=== PATIENT | male | born 1960 | race Caucasian/White ===

== ENCOUNTER 2017-06-02 10:44 | Day surgery (SDC) | payer BC ==
[~2017-06-02 10:44] MED LIST: Lactated Ringers 1,000 ML IV SCH
[2017-06-02] MEDS ORDERED: fentaNYL 100 MCG/2 ML SDV ONE (11:41)
[2017-06-02] MEDS ORDERED: Propofol 200 MG/20 ML SDV ONE (11:41)
[2017-06-02] MEDS ORDERED: Midazolam 1 MG/ML 2 ML SDV ONE (11:41)
[2017-06-02] MEDS ORDERED: Ondansetron 4 MG/2 ML SDV ONE (11:41)
--- NOTE | 2017-06-02 11:50 | PCM.PREANE ---
Preanesthetic Assessment - Anesthesia/Transfusion/Family Hx Anesthesia History: Prior Anesthesia Without Reaction Family History of Anesthesia Reaction: No Transfusion History: No Prior Transfusion(s) Intubation History: Unknown - Review of Systems General: No Symptoms Pulmonary: No Symptoms Cardiovascular: No Symptoms Gastrointestinal: Other (acid reflux) Neurological: No Symptoms Other: Reports: None - Physical Assessment O2 Sat by Pulse Oximetry: 98 Respiratory Rate: 16 Vital Signs: Last Vital Signs Temp 36 C 06/02/17 11:02 Pulse 101 H 06/02/17 11:02 Resp 16 06/02/17 11:02 BP 144/93 H 06/02/17 11:02 Pulse Ox 98 06/02/17 11:02 Height: 1.96 m Weight: 116.573 kg ASA Class: 2 Mental Status: Alert & Oriented x3 Airway Class: Mallampati = 2 Dentition: Reports: Normal Dentition Thyro-Mental Finger Breadths: 3 Mouth Opening Finger Breadths: 2 ROM/Head Extension: Full Lungs: Clear to Auscultation, Normal Respiratory Effort Cardiovascular: Regular Rate, Regular Rhythm - Allergies Allergies/Adverse Reactions: Allergies Allergy/AdvReac Type Severity Reaction Status Date / Time No Known Allergies Allergy Verified 02/10/16 14:14 - Blood Blood Available: No - Anesthesia Plan Pre-Op Medication Ordered: None - Acknowledgements Anesthesia Type Planned: MAC Pt an Appropriate Candidate for the Planned Anesthesia: Yes Alternatives and Risks of Anesthesia Discussed w Pt/Guardian: Yes Pt/Guardian Understands and Agrees with Anesthesia Plan: Yes PreAnesthesia Questionnaire HEENT History: Reports: None Cardiovascular History: Reports: High Cholesterol Respiratory History: Reports: SOB (since february, patient believes it is from abdominal pressure, cardiac tests ok) Gastrointestinal History: Reports: GERD Genitourinary History: Reports: None Musculoskeletal History: Reports: None Neurological History: Reports: Migraines Psychiatric History: Reports: None Endocrine/Metabolic History: Reports: Obesity/BMI 30+ Hematologic History: Reports: None Oncologic (Cancer) History: Reports: None Dermatologic History: Reports: None - Infectious Disease History Infectious Disease History: Reports: None - Past Surgical History Head Surgeries/Procedures: Reports: None Musculoskeletal Surgical History: Reports: Arthroscopic Knee, Other (See Below) Other Musculoskeletal Surgeries/Procedures:: Right knee reconstructive surgery, rt knee arthroscopy - SUBSTANCE USE Smoking Status *Q: Never Smoker Second Hand Smoke Exposure: No Recreational Drug Use History: No - HOME MEDS Home Medications: Home Meds Aspirin [[place] Aspirin] 81 mg CHEW DAILY 03/16/17 [History] Omeprazole 40 mg PO DAILY 03/16/17 [History] SUMAtriptan Succinate [Imitrex] 100 mg PO ASDIRECTED PRN 05/28/17 [History] - CURRENT (IN HOUSE) MEDS Current Meds: Current Medications Lactated Ringer's (Ringers, Lactated) 1,000 mls @ 125 mls/hr IV ASDIRECTED ALONDRA Last Admin: 06/02/17 11:09 Dose: 125 mls/hr Discontinued Medications Fentanyl (Sublimaze) Confirm Administered Dose 100 mcg .ROUTE .STK-MED ONE Stop: 06/02/17 11:42 Lidocaine HCl (Xylocaine-Mpf 1%) Confirm Administered Dose 5 ml .ROUTE .STK-MED ONE Stop: 06/02/17 11:42 Midazolam HCl (Versed 1 Mg/Ml) Confirm Administered Dose 2 mg .ROUTE .STK-MED ONE Stop: 06/02/17 11:42 Ondansetron HCl (Zofran) Confirm Administered Dose 4 mg .ROUTE .STK-MED ONE Stop: 06/02/17 11:42 Propofol (Diprivan 20 Ml) Confirm Administered Dose 400 mg .ROUTE .STK-MED ONE Stop: 06/02/17 11:42
--- NOTE | 2017-06-02 13:43 | PCM.OPNOTE ---
- General Post-Op/Procedure Note Date of Surgery/Procedure: 06/02/17 Operative Procedure(s): egd w bx. and colonoscopy Findings: see dict [id number] Pre Op Diagnosis: gerd and abd pain Post-Op Diagnosis: gerd and diverticulosis Anesthesia Technique: Moderate Sedation Primary Surgeon: Sidney Palm Pathology: 1) egd bx 2) duod hyperemic bx at bulb Complications: None Condition: Good
[2017-06-02 14:03] VITALS: BP 111/75
--- NOTE | 2017-06-02 18:21 | OR ---
SURGEON: Sidney Palm MD DATE OF PROCEDURE: 06/02/2017 PREOPERATIVE DIAGNOSIS: Gastroesophageal reflux disease and abdominal pain. POSTOPERATIVE DIAGNOSIS: EGD diagnosis gastroesophageal reflux disease, colonoscopy diagnosis diverticulosis. PROCEDURE PERFORMED: EGD with biopsy. EGD: The patient was taken to the endoscopy room, and with the BUSINESS CONTINUITY ANALYST, Diprivan was administered. A well-lubricated EGD scope was gently inserted through the oropharynx, down the esophagus, passing through the gastroesophageal junction, into the stomach. The mucosa was examined upon the passage. Any etiology will be noted. Once in the stomach, we continued to advance to the distal antrum, passed through the pylorus into the second portion of the duodenum. Again, the mucosa was examined for any abnormality and etiology. The scope was then retrieved back to the stomach and then retroflexed to look at the fundus of the stomach. If a biopsy was indicated, we will biopsy the antrum, body, and gastroesophageal junction. The air will be sucked out while the scope is retrieved to reduce the patient's discomfort. The patient tolerated the procedure well. There were no intraoperative complications. Dr. Palm was present through the whole procedure. Prior to surgery, a time-out had been called, the patient identified, procedure identified and antibiotic administered. Colonoscopy diagnosis is diverticulosis: The patient was taken to the endoscopy room. A time out was called, patient identified, and procedure identified. Diprivan was then administrated. Patient went from awake to sleep, hearing doctor talking or door closing is normal. Perineum inspection and digital examination were then performed. A well- lubricated colonoscope was gently inserted through the rectum, advanced past the rectosigmoid junction, the descending colon, splenic flexure, transverse colon, hepatic flexure, ascending colon, arrived to the cecum. Cecum was identified as dictated in the finding. Then the scope was carefully withdrawn while attention was paid to the mucosal surface for any abnormality. Air will be sucked out during the scope withdrawal. At the rectum, retroflexed to examine any rectal diseases, fistula or hemorrhoids. Patient tolerated procedure well. There were no intraoperative complications, and Dr. Palm was present throughout the whole procedure. FINDINGS: EGD Findin. The patient is easily sedated with BUSINESS CONTINUITY ANALYST and Diprivan. The patient is soundly snoring. 2. Oropharynx and proximal esophagus are free of disease. No stricture, inflammation, ulceration. GE junction at 40 shows moderate salmon color change consistent with acid reflux. Stomach rugae is normal in appearance and no bile, blood, ulceration, or food observed. Antrum was a little bit inflamed. Right behind the antrum, the duodenal bulb partly obscured by the antrum, is a little bit hyperemic and normal in appearance. Biopsy done at duodenum is grossly normal in appearance. Scope retrieved back to the stomach. Retroflexed look at the fundus of stomach, there is no hiatal hernia. Biopsy done at antrum, body, and GE junction at 40. The patient has a couple of tiny stomach polyp at the greatest curvature. In summary, biopsy done at duodenal bulb because of hyperemic and biopsy done at antrum and a greater curvature at the polyp that one retrieved by biopsy and GE junction at 40. Colonoscopy Findin. The patient is easily sedated with BUSINESS CONTINUITY ANALYST and Diprivan. The patient is soundly snoring. 2. Bowel prep is average, large amount of liquid stool. No semi-formed stool. 3. The patient's colon was rather straight forward. Cecum indicated by ileocecal fold, one-to-one indentation, appendix orifice, and ileocecal fold. Mucosa examined upon scope pulling out and the patient does not have polyp, mass growth, inflammation, stricture ulceration, AV malformation, and bleeding. The patient has moderate diverticulosis on the sigmoid colon. No signs or symptoms of diverticulitis or inflammation. The patient had internal hemorrhoids. No external hemorrhoids. The patient would benefit from repeat colonoscopy 10 years from today or if clinically indicated otherwise. ALLI / KELLY /[id number]
== END 2017-06-02 14:25 | disposition home or self-care (01) ==
LOC: MW.SDS 10:44
PROVIDERS: ATTEND Surgery
DX: K31.7 Polyp of stomach and duodenum (principal); K20.9 Esophagitis, unspecified; K21.9 Gastro-esophageal reflux disease without esophagitis; K57.30 Diverticulosis of large intestine without perforation or abscess without bleeding; K64.8 Other hemorrhoids; G43.909 Migraine, unspecified, not intractable, without status migrainosus; E66.9 Obesity, unspecified; Z79.82 Long term (current) use of aspirin; Z79.899 Other long term (current) drug therapy; Z98.890 Other specified postprocedural states; Z68.30 Body mass index [BMI] 30.0-30.9, adult
CPT/HCPCS: 43239; 45378; J2250; J2405; J3010; J7120; 88305; 88312; J2704